=== PATIENT | male | born 1990 | race Two or more races ===

== ENCOUNTER 2022-08-02 19:53 | Emergency (ER) | payer MEDICAID, OTHER ==
[~2022-08-02] VITALS: Ht 175.3 cm; Wt 80.0 kg
[2022-08-02 21:21] LABS: Basophils # (auto) 0.2 10 ^3/uL (0-0.2); Basophils % (auto) 2.6 % (0.0-2.0); Eosinophils # (auto) 0.1 10 ^3/uL (0-0.8); Eosinophils % (auto) 1.5 % (0.0-7.0); Hematocrit 49.2 % (41.0-53.0); Hemoglobin 16.8 g/dL (13.5-17.5); Lymphocytes % (auto) 32.6 % (10.0-50.0); Mean Corpuscular Hemoglobin 31.4 pg (28.0-32.0); Mean Corpuscular Volume 92.2 fL (80.0-100.0); Monocytes # (auto) 0.5 10 ^3/uL (0-1.3); Monocytes % (auto) 5.9 % (0.0-12.0); Neutrophils # (auto) 5.2 10 ^3/uL (1.6-8.6); Neutrophils % (auto) 57.4 % (37.0-80.0); Nucleated Red Blood Cells % 0.2 %; Red Blood Cells 5.34 10^6/uL (4.5-5.90); Red Cell Distribution Width 13.2 % (11.8-14.3); White Blood Cell 9.1 10^3/uL (4.4-10.8)
[2022-08-02 21:43] LABS: Acetaminophen < 2.0 ug/mL (10-30); Salicylate 4.6 mg/dL (2.8-20.0)
[2022-08-02 21:47] LABS: Albumin 3.9 g/dL (3.4-5.0); Calcium 8.3 mg/dL (8.5-10.1); Potassium 3.6 mmol/L (3.5-5.1)
[2022-08-02 21:50] LABS: BUN/Creatinine Ratio 9.5; Bilirubin, Total 0.5 mg/dL (0.2-1.0); Total Protein 6.8 g/dL (6.4-8.2)
[2022-08-03] MEDS: SERTRALINE HCL 50 MG TAB PO SCH ×2 (07:00→13:49)
[2022-08-03 07:30] VITALS: BP 118/75
== END 2022-08-03 17:18 | disposition home or self-care (01) ==
LOC: EDBD 19:53 → ER 19:53
DX: T42.8X2A Poisoning by antiparkinsonism drugs and other central muscle-tone depressants, intentional self-harm, initial encounter (principal); F32.9 Major depressive disorder, single episode, unspecified; Y92.89 Other specified places as the place of occurrence of the external cause
CPT/HCPCS: 36415; 80053; 80320; 80329; 85025